=== PATIENT | male | born 1935 | race African-American/Black ===

== ENCOUNTER 2017-03-31 16:34 | Inpatient (IN) | payer MEDICARE ==
[~2017-03-31] VITALS: Ht 170.2 cm; Wt 90.7 kg
[~2017-03-31 16:34] MED LIST: LISI1POW
[2017-03-31 17:47] LABS: BASOPHILS % 0.5 % (0.0-2.0); HEMATOCRIT. 28.8 % (42.0-52.0); HEMOGLOBIN. 9.1 g/dL (14.0-18.0); MEAN CORPUSCULAR HEMOGLOBIN 20.9 pg (28.0-32.0); MEAN CORPUSCULAR VOLUME 66.1 fL (80.0-94.0); MEAN PLATELET VOLUME 8.5 fl (7.4-10.4); MONOCYTES % 6.1 % (2.0-8.0); NEUTROPHILS % 74.4 % (40.0-76.0); PLATELET 118 x1000/uL (130-400); RED BLOOD CELL COUNT 4.35 mill/uL (4.7-6.1); RED CELL DISTRIBUTION WIDTH 24.1 % (11.6-14.6)
[2017-03-31 17:50] LABS: CARBON DIOXIDE 24 mEq/L (21-32); CHLORIDE 111 mEq/L (98-107)
[2017-03-31 17:51] LABS: INR 1.1; PROTHROMBIN TIME 10.9 sec
[2017-03-31 17:58] LABS: TROPONIN I < 0.02 ng/mL (0.00-0.04)
[2017-03-31 18:06] LABS: PLATELET ESTIMATE DECREASED
[2017-03-31] MEDS ORDERED: CLONIDINE 0.1MG TABLET PO PRN (21:30)
[2017-03-31] MEDS ORDERED: ACETAMINOPHEN 325MG TABLET PO PRN (21:30)
[2017-03-31] MEDS ORDERED: ONDANSETRON HCL 4MG/2ML VIAL IV PRN (21:30)
[2017-03-31] MEDS ORDERED: DOCUSATE SODIUM 100MG CAPSULE PO PRN (21:30)
[2017-03-31] MEDS ORDERED: MAGNESIUM/ALUMINUM HYDROXIDE/SIMETHICONE 30ML UDC PO PRN (21:30)
[2017-03-31] MEDS ORDERED: IPRATROPIUM/ALBUTEROL 0.5-3(2.5)MG/3ML NEB INH PRN (21:30)
[2017-03-31 22:30] VITALS: BP_SYST 140; BP_SYST 156; BP_SYST 185; BP_DIAS 75; BP_DIAS 80; BP_DIAS 86
[2017-03-31] MEDS ORDERED: ENOXAPARIN 40MG/0.4ML SYR SUBCUT SCH (22:30)
[2017-03-31] MEDS ORDERED: DEXTROSE 50% WATER 50ML SYRINGE IV PRN (23:30)
[2017-03-31] MEDS ORDERED: METF500T4 PO (23:35)
[2017-03-31] MEDS ORDERED: GLIP10TA10 PO (23:35)
[2017-03-31] MEDS ORDERED: INSU3INS6 SUBCUT (23:35)
[2017-03-31] MEDS ORDERED: METO-300 PO ×2 (23:35)
[2017-04-01 01:46] LABS: CLARITY URINE CLEAR (CLEAR); COLOR URINE YELLOW (YELLOW); GLUCOSE URINE NEGATIVE (NEGATIVE); KETONES URINE TRACE (NEGATIVE); LEUKOCYTE ESTERASE URINE NEGATIVE (NEGATIVE); NITRITE URINE NEGATIVE (NEGATIVE); OCCULT BLOOD URINE NEGATIVE (NEGATIVE); PROTEIN URINE NEGATIVE (NEGATIVE); SPECIFIC GRAVITY URINE 1.023 (1.005-1.030); UROBILINOGEN URINE 0.2 E.U./dL (0.2-1.0)
[2017-04-01 02:16] LABS: *AMPHETAMINES SCREEN URINE NEGATIVE (NEGATIVE); *BARBITURATES SCREEN URINE NEGATIVE (NEGATIVE); *BENZODIAZEPINES SCREEN URINE NEGATIVE (NEGATIVE); *COCAINE SCREEN URINE NEGATIVE (NEGATIVE); CANNABINOID URINE SCREEN NEGATIVE (NEGATIVE); METHADONE URINE SCREEN NEGATIVE (NEGATIVE); OPIATES URINE SCREEN NEGATIVE (NEGATIVE); PHENCYCLIDINE URINE SCREEN NEGATIVE (NEGATIVE)
[2017-04-01 02:17] LABS: CARBON DIOXIDE 24 mEq/L (21-32); CHLORIDE 109 mEq/L (98-107); CREATINE KINASE 64 IU/L (39-308); CREATINE KINASE MB FRACTION 1.4 ng/mL (0.5-3.6); TOTAL IRON BINDING CAPACITY 363 ug/dL (250-450); TROPONIN I 0.03 ng/mL (0.00-0.04)
[2017-04-01 04:00] VITALS: BP 128/62
[2017-04-01] MEDS: INSULIN LISPRO 100 UNITS/ML SUBCUT SCH ×2 (06:02→11:36)
[2017-04-01] MEDS ORDERED: BLOOD SUGAR DIAGNOSTIC STRIP TEST SCH (06:45)
[2017-04-01 07:17] LABS: BASOPHILS % 0.7 % (0.0-2.0); CREATINE KINASE MB FRACTION 1.6 ng/mL (0.5-3.6); EOSINOPHILS % 1.2 % (0.0-5.0); HEMATOCRIT. 26.7 % (42.0-52.0); HEMOGLOBIN. 8.3 g/dL (14.0-18.0); LYMPHOCYTES % 15.1 % (20.0-50.0); MEAN CORPUSCULAR HEMOGLOBIN 20.6 pg (28.0-32.0); MEAN CORPUSCULAR VOLUME 66.1 fL (80.0-94.0); MEAN PLATELET VOLUME 8.6 fl (7.4-10.4); MONOCYTES % 7.5 % (2.0-8.0); NEUTROPHILS % 75.5 % (40.0-76.0); PLATELET 101 x1000/uL (130-400); RED BLOOD CELL COUNT 4.04 mill/uL (4.7-6.1); RED CELL DISTRIBUTION WIDTH 23.5 % (11.6-14.6); TROPONIN I 0.03 ng/mL (0.00-0.04)
[2017-04-01 08:00] VITALS: BP_SYST 131; BP_SYST 164; BP_DIAS 101; BP_DIAS 91
[2017-04-01 12:00] VITALS: BP 147/75
[2017-04-01 16:00] VITALS: BP 145/71
[2017-04-01 17:40] VITALS: BP 120/62
== END 2017-04-01 18:30 | disposition home or self-care (01) | DRG 310 ==
LOC: ER 19:23 → 5WST 19:24 → EDBEDREQTM 19:30 → EDBEDREQ 19:30 → ENRESERV 21:09
PROVIDERS: ADMIT Internal Medicine; ATTEND Internal Medicine
PROC: 4B02XTZ Measurement of Cardiac Defibrillator, External Approach (ICD-10-PCS; principal; 2017-04-01)
PROC: 5A2204Z Restoration of Cardiac Rhythm, Single (ICD-10-PCS; 2017-04-01)
DX: I49.01 Ventricular fibrillation (principal); I47.2 Ventricular tachycardia; D50.9 Iron deficiency anemia, unspecified; E11.9 Type 2 diabetes mellitus without complications; E78.00 Pure hypercholesterolemia, unspecified; I11.0 Hypertensive heart disease with heart failure; I25.10 Atherosclerotic heart disease of native coronary artery without angina pectoris; I49.40 Unspecified premature depolarization; I50.9 Heart failure, unspecified; K59.00 Constipation, unspecified; K64.9 Unspecified hemorrhoids; R35.1 Nocturia; J32.9 Chronic sinusitis, unspecified; M10.9 Gout, unspecified; I25.2 Old myocardial infarction; Z98.42 Cataract extraction status, left eye; Z98.41 Cataract extraction status, right eye; Z79.899 Other long term (current) drug therapy; Z95.1 Presence of aortocoronary bypass graft; Z95.810 Presence of automatic (implantable) cardiac defibrillator; Z90.49 Acquired absence of other specified parts of digestive tract; Z87.891 Personal history of nicotine dependence; Z82.49 Family history of ischemic heart disease and other diseases of the circulatory system
CPT/HCPCS: 36415; 70450; 71010; 72125; 80048; 80053; 80061; 80305; 81003; 82550; 82553; 82962; 83540; 83550; 83735; 83880; 84443; 84484; 85025; 85044; 85610; 93005; 93306; 93970; 99285; J1650; J1815